=== PATIENT | male | born 1955 | race Caucasian/White ===

== ENCOUNTER 2021-05-22 08:24 | Outpatient (REF) | payer BC, SELFPAY ==
[2021-05-22 11:15] LABS: Binax Now Covid-19 Ag Positive (Negative)
[2021-05-22 11:16] LABS: Binax Internal Control QC Valid; Binax Lot number: 9864
== END 2021-05-22 08:25 | disposition home or self-care (01) ==
LOC: HO.LAB 08:24
PROVIDERS: Visit Provider Internal Medicine
DX: Z20.822 Contact with and (suspected) exposure to COVID-19 (principal)
CPT/HCPCS: 36415; C9803

== ENCOUNTER 2024-08-29 16:22 | Emergency (ER) | payer BC, SELFPAY ==
--- NOTE | ~2024-08-29 | XR_ITS ---
CLINICAL HISTORY: htn 2 view chest x-ray Comparison: None Findings: Lungs are clear without acute infiltrates. No pneumothorax. Heart size normal. Retrocardiac hiatal hernia noted. No acute bony abnormalities. Impression: No acute processes This document has been electronically signed by: Kit Burroughs MD on 08/29/2024 18:22:31
[2024-08-29 16:28] VITALS: BP 196/115; PULSE 94; RESP 19; TEMP 36.6; O2SAT 99
--- NOTE | 2024-08-29 16:28 | ED.GENADULT ---
HPI - General Adult General Chief complaint: General Medical Stated complaint: high blood pressure-from Urgent care Time Seen by Provider: 08/29/24 19:17 Source: patient and family Mode of arrival: ambulatory Limitations: no limitations History of Present Illness ED Provider: Imelda Richter APRN HPI narrative: This is a 68-year-old male with no known medical history presents from urgent care with concern for hypertension. Patient denies any history of hypertension. He is not taking any medications for high blood pressure. He denies any headache, vision changes, nausea, vomiting, chest pain, dizziness. He was being seen in urgent care for an abscess which he was prescribed an antibiotic for. Related Data Previous Rx's ?Medication ?Instructions ?Recorded amlodipine 5 mg tablet (Norvasc) 5 mg PO DAILY #60 tabs 08/29/24 Allergies Allergy/AdvReac Type Severity Reaction Status Date / Time No Known Allergies Allergy Verified 08/29/24 16:30 Review of Systems Review of Systems: Yes all other systems are reviewed and are negative Constitutional: Constitutional: Reports no additional constitutional complaints, Denies body ache(s), Denies chills, Denies fever(s), Denies headache(s) and Denies weakness Eyes: Eyes: Reports no additional eye complaints and Denies change in vision ENT: Reports system reviewed and no additional complaints, except as documented, Denies dizziness, Denies headache(s), Denies nasal congestion, Denies nasal discharge and Denies neck pain Cardiovascular: Cardiovascular: Reports no additional cardiovascular complaints, Denies chest pain, Denies leg edema and Denies dyspnea Respiratory: Respiratory: Reports no additional respiratory complaints, Denies cough and Denies dyspnea Gastrointestinal: Gastrointestinal: Reports no additional gastrointestinal complaints, Denies abdominal pain, Denies diarrhea, Denies nausea and Denies vomiting Genitourinary: Genitourinary: Denies urinary incontinence Musculoskeletal: Musculoskeletal: Reports no additional musculoskeletal complaints, Denies back pain, Denies arthralgias, Denies joint swelling, Denies neck pain, Denies numbness and Denies tingling Integumentary/Breasts: Skin/Breast: Reports system reviewed and no additional complaints, except as docu and Denies rash Neurologic: Reports system reviewed and no additional complaints, except as documented, Denies Abnormal speech present, Denies dizziness, Denies headache(s), Denies numbness, Denies tingling and Denies weakness [facility] Past Medical History Attestation statement: The following information was validated with the patient. Source: old records reviewed and nursing notes reviewed Social History Social History Do you have a plan to hurt others: No Plan Physical Exam ED Vital Signs: Vital Signs - 24 hr 08/29/24 16:28 08/29/24 19:26 Temperature 98 F Pulse Rate 94 Respiratory Rate 19 Blood Pressure 196/115 H 160/98 H Pulse Oximetry 99 Oxygen Delivery Method Room Air BMI result Body Mass Index 30.0 Const General: cooperative, healthy appearing, comfortable and no acute distress Orientation/consciousness: patient oriented x3 Limitations: no limitations HENMT Head: Yes normal to inspection Ears: hearing grossly normal bilaterally and TM's normal bilaterally General nose exam: Normal external nose present Face and sinus: Yes normal facial exam Mouth: Normal oral and palatal mucosa present Throat: Yes posterior oropharynx normal, Yes tonsils normal and Yes uvula midline Eyes General: appearance normal, both eyes and all related structures Pupils: Equal, round and reactive pupils present Neck Neck: Yes normal visual inspection, Yes full ROM, Yes no lymphadenopathy and Yes no meningeal signs Chest Chest palpation & inspection: normal inspection of the chest Resp Effort & Inspection: normal respiratory effort Auscultation: clear to auscultation bilaterally Cardio Rate: regular rate Rhythm: regular rhythm Peripheral pulses: Peripheral pulses 2+ throughout GI Inspection: Yes normal to inspection Palpation (GI): Soft to palpation and nontender Auscultation: normal bowel sounds Back/Spine/Pelvis Thoracic/Lumbar Spine: thoracic and lumbar spine normal to inspection Skin General skin exam: no rashes or lesions noted Neuro General: patient oriented x3, no meningeal signs, no focal motor deficits and normal sensation to monofilament Cranial nerves: Yes Equal, round and reactive pupils present Cognition (Neuro): normal cognition Speech: No Abnormal speech present Gait exam (Neuro): Normal gait present Motor exam (neuro): 5/5 motor strength present throughout Extrem General: Yes normal to inspection, Yes no pedal edema and Yes no calf tenderness Course Course Course Narrative: This is a rapid medical exam performed by Nadeen Pierson NP: Additional HPI, ROS, PE not included below will be deferred to primary provider. 08/29/24 16:28 Patient is a 68-year-old male presenting from urgent care for high blood pressure readings. He initially went to urgent care for an axillary abscess which was I&D'd, but BP remained high so he was referred here. Denies history of HTN, is not on antihypertensives. Denies headache, chest pain, dizziness. Patient has not been to the doctor in over 35 years. 195/115 in triage Plan: EKG, labs Medical Decision Making Medical Decision Making [facility] Narrative: This is a 68-year-old male with no known medical history presents from urgent care with concern for hypertension. Patient denies any history of hypertension. He is not taking any medications for high blood pressure. He denies any headache, vision changes, nausea, vomiting, chest pain, dizziness. He was being seen in urgent care for an abscess which he was prescribed an antibiotic for. Asymptomatic hypertension. Repeat blood pressure by myself in the room is 160/98. We discussed dietary changes at home, increasing patient's physical activity, limiting beer intake, limiting caffeine. I will put him on a low dose of amlodipine. He needs a primary care doctor so recommended he work on establishing 1. We discussed the signs and symptoms of hypertensive emergency and when he should seek emergency care. He has a blood pressure machine at home so I recommended he keep a log of his blood pressures. I did review his labs and EKG which were unremarkable. Differential Diagnosis Differential Diagnoses: The differential diagnosis associated with the presentation includes Hypertension Low concern for hypertensive crisis, hypertensive urgency, ACS Admission/Observation Consideration of admission/observation: Escalation of care including admission/observation considered Lab Data [facility] Lab Attestation statement: I reviewed the patient's lab results. 08/29/24 16:47 08/29/24 16:47 Labs: Lab Results 08/29/24 Range/Units 16:47 WBC 10.0 (4.8-10.8) X10*3/uL RBC 4.87 (4.60-5.80) X10*6/uL Hgb 15.1 (14.0-18.0) g/dl Hct 44.3 (42.0-52.0) % MCV 91.0 (80.0-98.0) fL MCH 31.0 (27.0-33.0) pg MCHC 34.1 (31.0-36.0) g/dl RDW 13.4 (11.0-16.0) % Plt Count 129 L (160-400) X10*3/uL MPV 10.9 (9.4-12.4) fL Immature Gran % (Auto) 0.3 (0.0-0.4) % Neut % (Auto) 63.5 (45-73) % Lymph % (Auto) 22.6 (20-40) % Christian % (Auto) 12.7 H (2-11) % Eos % (Auto) 0.5 (0-4) % Baso % (Auto) 0.4 (0-2) % Lymph # (Auto) 2.3 (1.2-4.9) X10*3/uL Christian # (Auto) 1.3 H (0.1-1.2) X10*3/uL Eos # (Auto) 0.1 (0.0-0.4) X10*3/uL Baso # (Auto) 0.0 (0.0-0.2) X10*3/uL Abs Immat Gran (auto) 0.03 (0.00-0.03) X10*3/uL Absolute Neuts (auto) 6.3 (2.0-8.3) x10*3/uL Absolute Nucleated RBC 0.000 (0.0-0.012) X10*3/uL Nucleated RBC % (auto) 0.0 (0.0-0.2) /100WBC Smear Tech's Comments VERIFIED Sodium 142 (135-145) mmol/L Potassium 4.7 (3.3-5.1) mmol/L Chloride 109 H (96-108) mmol/L Carbon Dioxide 24 (22-29) mmol/L Anion Gap 14 (12-20) BUN 17 H (9-16) mg/dL Creatinine 1.09 (0.5-1.4) mg/dL Estim Creat Clear Calc 65.5 Estimated GFR > 60 Random Glucose 93 (60-115) mg/dL Calcium 9.4 (8.4-10.2) mg/dL Total Bilirubin 1.3 H (0.0-1.0) mg/dL AST 34 (5-37) U/L ALT 35 (0-40) U/L Alkaline Phosphatase 108 (39-117) U/L Troponin I High Sens 2.9 (<3.5-35.0) ng/L Total Protein 8.0 (6.5-8.0) g/dL Albumin 4.2 (3.5-5.0) g/dL Independent Interpretation I performed an independent interpretation of an: EKG Interpretation: I independently viewed the EKG which shows normal sinus rhythm with a rate of 93, normal FL, normal QRS normal QT Independent Historian Clinical information obtained from an independent historian. History obtained from or confirmed by: Spouse Discharge Plan Discharge Clinical Impression: Hypertension Patient Disposition: Home, Self-Care Instructions: Heart Healthy Diet (ED), Low-Sodium Diet (ED), Hypertension (ED) Additional Instructions: Limit alcohol intake Limit salt in the diet Try to move your body 3-4 times weekly Limit caffeine You need to follow-up with a primary care doctor. Please work on establishing one. Prescriptions: New amlodipine [Norvasc] 5 mg tablet 5 mg PO DAILY Qty: 60 0RF Print Language: Malawian
--- NOTE | 2024-08-29 16:32 | ECG_ITS ---
Test Reason : hpertensiom Blood Pressure : */* mmHG Vent. Rate : 87 BPM Atrial Rate : 87 BPM P-R Int : 140 ms QRS Dur : 80 ms QT Int : 360 ms P-R-T Axes : 43 -17 20 degrees QTcB Int : 433 ms Poor data quality, interpretation may be adversely affected Normal sinus rhythm Inferior infarct , age undetermined Abnormal ECG No previous ECGs available Referred By: Sherrie Pierson Electronically Signed By: LINDA RODRIGUEZ MD
[2024-08-29 16:55] LABS: Basophils Percent Auto 0.4 % (0-2); Eosinophils Absolute Auto 0.1 X10*3/uL (0.0-0.4); Eosinophils Percent Auto 0.5 % (0-4); Hematocrit 44.3 % (42.0-52.0); Hemoglobin 15.1 g/dl (14.0-18.0); Imm Gran Abs Auto 0.03 X10*3/uL (0.00-0.03); Imm Gran Pct Auto 0.3 % (0.0-0.4); Lymphocytes Absolute Auto 2.3 X10*3/uL (1.2-4.9); Lymphocytes Percent Auto 22.6 % (20-40); MANUAL DIFF FLAG SCAN; Mean Corpuscular HGB Conc 34.1 g/dl (31.0-36.0); Mean Platelet Volume 10.9 fL (9.4-12.4); Monocytes Absolute Auto 1.3 X10*3/uL (0.1-1.2); Monocytes Percent Auto 12.7 % (2-11); Neutrophils Absolute Auto 6.3 x10*3/uL (2.0-8.3); Neutrophils Percent Auto 63.5 % (45-73); PLT CLUMP 1; Red Blood Count 4.87 X10*6/uL (4.60-5.80); Red Cell Distribution Width 13.4 % (11.0-16.0); SCAN SMEAR FLAG 1
[2024-08-29 17:15] LABS: Platelet Count 129 X10*3/uL (160-400); SLIDE REVIEW VERIFIED
[2024-08-29 17:23] LABS: Alanine Aminotransferase 35 U/L (0-40); Albumin Level 4.2 g/dL (3.5-5.0); Anion Gap 14 (12-20); Aspartate Amino Transferase 34 U/L (5-37); Bilirubin Total 1.3 mg/dL (0.0-1.0); Blood Urea Nitrogen 17 mg/dL (9-16); Calcium 9.4 mg/dL (8.4-10.2); Carbon Dioxide 24 mmol/L (22-29); Chloride 109 mmol/L (96-108); Creatinine Clr Calc Pharmacy 65.5; Estimated Glomerular Filt Rate > 60; Glucose Random 93 mg/dL (60-115); Potassium 4.7 mmol/L (3.3-5.1); Sodium 142 mmol/L (135-145); Troponin-I High Sensitivity 2.9 ng/L (<3.5-35.0)
[2024-08-29 17:39] LABS: Alkaline Phosphatase 108 U/L (39-117)
[2024-08-29 19:26] VITALS: BP 160/98
[2024-08-29 19:32] VITALS: BP 160/98
[2024-08-29] MEDS: amLODIPine Besylate 5 MG TABLET PO (19:32)
[2024-08-29 20:07] VITALS: BP 160/98; PULSE 68; RESP 16; TEMP -17.7; TEMP 0; O2SAT 95
== END 2024-08-29 20:08 | disposition home or self-care (01) ==
PROVIDERS: Registered Nurse Emergency; Emergency Provider Emergency Medicine Emergency Medical Services
DX: I10 Essential (primary) hypertension (principal)
CPT/HCPCS: 36415; 71046; 80053; 84484; 85025; 93005; 99283; 99284

== ENCOUNTER → 2024-08-29 16:32 | Outpatient (BNV) | payer BC, SELFPAY | PROVIDERS: Emergency Provider Emergency Medicine Emergency Medical Services; Visit Provider Internal Medicine Cardiovascular Disease | DX: R94.31 Abnormal electrocardiogram [ECG] [EKG] (principal); I10 Essential (primary) hypertension | CPT/HCPCS: 93010 ==

== ENCOUNTER → 2024-08-29 16:32 | Outpatient (BNV) | payer BC, SELFPAY | PROVIDERS: Visit Provider Radiology Diagnostic Radiology | DX: I10 Essential (primary) hypertension (principal) | CPT/HCPCS: 71046 ==

== ENCOUNTER 2024-10-28 05:38 | Emergency (ER) | payer BC, SELFPAY ==
[2024-10-28 05:39] VITALS: BP 150/87; PULSE 70; RESP 16; TEMP 36.1; O2SAT 99
--- NOTE | 2024-10-28 07:06 | ED.GENADULT ---
HPI - General Adult General Chief complaint: General Medical Stated complaint: high bp Time Seen by Provider: 10/28/24 06:58 Source: patient and old records reviewed Mode of arrival: ambulatory Limitations: no limitations History of Present Illness ED Provider: NICOLAS HPI narrative: 68 yo male with no complaints just cant get to his PCP for his chronic HTN he is asking for refill of 5mg amlodipine. He has negative ROS and has no complalints. MD complaint: med refill Onset (ago): day(s) (2) Severity: mild Relieving factors: none Exacerbating factors: none Associated symptoms: denies other symptoms Treatments prior to arrival: none Related Data Previous Rx's ?Medication ?Instructions ?Recorded amlodipine 5 mg tablet (Norvasc) 5 mg PO DAILY #60 tabs 08/29/24 amlodipine 5 mg tablet 5 mg PO DAILY #90 tabs 10/28/24 Allergies Allergy/AdvReac Type Severity Reaction Status Date / Time No Known Allergies Allergy Verified 10/28/24 05:41 Review of Systems Review of Systems: Constitutional : No Fever, No Chills, No Fatigue ENT/Mouth : No sore throat, No Rhinorrhea Eyes: No Eye Pain, No Swelling, No Redness Cardiovascular : No Chest Pain, No SOB, No Dyspnea on Exertion Respiratory : No Cough, No Sputum Gastrointestinal : No Nausea, No Vomiting, No Diarrhea, No abdominal Pain Genitourinary : No Dysuria, No Urinary Frequency, No Hematuria, Musculoskeletal : No joint pain, No Myalgias, No Joint Swelling Skin : No Skin Lesions, No rash Neuro : No Weakness, No Numbness, No Dizziness, no headache All other systems reviewed and are negative [facility] Past Medical History Attestation statement: The following information was validated with the patient. Source: old records reviewed Medical History Chronic hypertension Social History Social History (Updated 10/28/24 @ 07:14 by Noemi Frazier DO) Patient Tobacco Use Status: Never used Tobacco Physical Exam ED Vital Signs: Vital Signs - 24 hr 10/28/24 05:39 10/28/24 07:08 Temperature 97.0 F 98.1 F Pulse Rate 70 66 Respiratory Rate 16 15 Blood Pressure 150/87 H 154/94 H Pulse Oximetry 99 99 Oxygen Delivery Method Room Air BMI result Body Mass Index 30.0 Appearance: Alert. Oriented X3. No acute distress. Eyes: Pupils equal, round and reactive to light. ENT: Pharynx normal. Neck: Normal inspection. Neck supple. CVS: Normal heart rate and rhythm. Pulses normal. Respiratory: No respiratory distress. Breath sounds normal. Abdomen: Soft and nontender. Skin: Skin warm and dry. Normal skin color. Normal skin turgor. Extremities: No lower extremity edema. No calf ttp Neuro: Oriented X 3. No motor deficit. No sensory deficit. CN2-12 intact Medications Administered Discontinued Medications Generic Name Dose Route Start Last Admin Trade Name Freq PRN Reason Stop Dose Admin Amlodipine Besylate 5 mg 10/28/24 07:06 10/28/24 07:11 Amlodipine Besylate 5 Mg Tablet PO 10/28/24 07:07 Not Given ONCE ONE Protocol Medical Decision Making Medical Decision Making MDM Narrative: 68 yo male with PMH of HTN has no complaints just needs his amlodipine 5mg refill. He has no CP/neuro symptoms. No signs of end organ damage Differential Diagnosis Differential Diagnoses: The differential diagnosis associated with the presentation includes chronic HTN Admission/Observation Consideration of admission/observation: Escalation of care including admission/observation considered asymptomatic no end organ damage stable for DC External Record Review External record reviewed: Outpatient record Prescription Management I considered prescription management with: Other Discharge Plan Discharge Clinical Impression: Chronic hypertension Patient Disposition: Home, Self-Care Instructions: Chronic Hypertension (ED) Additional Instructions: return for headaches, numbness, weakness, chest pain or any other concerns take your blood pressure medications as prescribed. your goal should be less than 130s/80s. follow up with your family doctor Prescriptions: New amlodipine 5 mg tablet 5 mg PO DAILY Qty: 90 1RF No Action amlodipine [Norvasc] 5 mg tablet 5 mg PO DAILY Qty: 60 0RF Print Language: Pashto
[2024-10-28 07:08] VITALS: BP 154/94; PULSE 66; RESP 15; TEMP 36.7; O2SAT 99
[2024-10-28 07:23] VITALS: BP 154/94; PULSE 66; RESP 15; TEMP 36.7; O2SAT 99
== END 2024-10-28 07:23 | disposition home or self-care (01) ==
PROVIDERS: Emergency Provider Emergency Medicine
DX: Z76.0 Encounter for issue of repeat prescription (principal); I10 Essential (primary) hypertension
CPT/HCPCS: 99283; 99284